=== PATIENT | male | born 1990 | race Caucasian/White ===

== ENCOUNTER 2020-10-12 09:44 | Emergency (ER) | payer SELFPAY ==
[~2020-10-12] VITALS: Ht 172.7 cm; Wt 115.0 kg
[2020-10-12 12:11] VITALS: BP 146/86
[2020-10-12] MEDS ORDERED: IBUPROFEN 600MG TABLET PO ONE (12:15)
[2020-10-12] MEDS ORDERED: ACET-2708 MT (12:49)
[2020-10-12] MEDS ORDERED: IBUP-2029 MT (12:49)
== END 2020-10-12 13:17 | disposition home or self-care (01) ==
LOC: ER 09:44
DX: S50.11XA Contusion of right forearm, initial encounter (principal); J45.909 Unspecified asthma, uncomplicated; W01.0XXA Fall on same level from slipping, tripping and stumbling without subsequent striking against object, initial encounter; Y93.89 Activity, other specified; Y92.89 Other specified places as the place of occurrence of the external cause; Y99.8 Other external cause status
CPT/HCPCS: 73090; 99283